=== PATIENT | female | born 1960 | race Caucasian/White ===

== ENCOUNTER → 2019-03-31 | Outpatient (CLI) | payer OTHER ==
[~2019-03-31] MED LIST: ERGO400 PO; LEVSOD125 PO; LORA.5 PO; ST. JOSEPH ASPI81 MG PO; TRIHYD253A PO
== END | disposition home or self-care (01) ==
LOC: LAB SHORT 07:45 → LAB 07:45
DX: L08.0 Pyoderma (principal)
CPT/HCPCS: 87070; 87205

== ENCOUNTER → 2024-07-04 | Outpatient (CLI) | payer OTHER | END | disposition home or self-care (01) | LOC: LAB 16:06 → LAB SHORT 16:06 | DX: N39.0 Urinary tract infection, site not specified (principal) | CPT/HCPCS: 87077; 87086; 87186 ==

== ENCOUNTER → 2025-03-01 | Outpatient (CLI) | payer OTHER | LOC: LAB 16:41 → LAB SHORT 16:41 | DX: R31.0 Gross hematuria (principal) | CPT/HCPCS: 87086 ==